=== PATIENT | female | born 1955 | race African-American/Black ===

== ENCOUNTER → 2016-11-28 | Outpatient (CLI) | payer OTHER ==
[~2016-11-28] MED LIST: ACET-1256 PO; B-COTAB18 PO; BIOT1CAP4 PO; BRIN3SUS OPB; CALC600T9 PO; CALCTAB7 PO; GABA-113 PO; GABA600T PO; IBUP-1050 PO; KETO0.5S22 OPB; MAGN250T9 PO; MELA3TAB PO; MISCCAP80 PO; NRN600 PO; NTRGSL/4 UT; OXYC1TAB3 PO; PRED1SUS3 OPR; TRAM-10 PO; TRAV0.00 OPB; VERA120T2 PO; [UNRECOGNIZED DRUG - OTHER] PO
--- NOTE | 2016-11-28 16:35 | DIAGNOSTIC IMAGING REPORT ---
CT SCAN OF THE CHEST WITHOUT IV CONTRAST CLINICAL HISTORY: Pulmonary nodule follow-up. COMPARISON STUDY: Chest CT scans dated 04/04/2016 and 01/30/2012. TECHNIQUE: CT scan of the thorax was performed from the thoracic inlet to the upper abdomen. Images are reviewed in the axial, sagittal, and coronal planes. IV contrast was not administered for this examination. CT DOSE: 675.37 mGy.cm FINDINGS: Thyroid: Imaged portions of the thyroid gland are mildly enlarged and heterogeneous. A coarse calcification is noted in the right lobe. Thoracic aorta: There is mild atherosclerotic calcification of the thoracic aorta, which is normal in caliber and demonstrates standard 3-vessel arch anatomy. Heart: The heart is normal in size and there is a small pericardial effusion. There are scattered coronary artery calcifications. The pulmonary trunk is normal in caliber. Lungs and pleural spaces: There is no airspace consolidation or pleural effusion. There is an 9 mm right middle lobe pulmonary nodule seen on axial image #126. This is unchanged from 04/04/2016 and has only minimally increased in size from 01/30/2012. Additional 2 to 3 mm nodules at the left lung base unchanged and of low suspicion. Tiny calcified granulomas are similar to the left lung base. The trachea and central airways are clear. Mediastinum: There is no mediastinal lymphadenopathy. Kellee: Not well assessed without IV contrast. Axillae: There is no axillary lymphadenopathy. Upper abdomen: Partially visualized upper abdominal viscera is within normal limits. Skeletal structures: The skeletal structures are osteopenic. No lytic or blastic bony lesions are seen. IMPRESSION: 1. No significant change in the appearance of a slow-growing 9 mm right middle lobe pulmonary nodule as compared to 04/04/2016. This nodule has slowly increased in size from 2011 when it measured up to 6 mm. A slow-growing neoplasm such as carcinoid tumor is suspected. Surgical consultation is advised. 2. No additional concerning nodules are identified. 3. There is no airspace consolidation, pleural effusion, or thoracic lymphadenopathy. Electronically signed by: Alfonso Iyer M.D. 11/28/2016 4:34 PM Dictated Date/Time: 11/28/2016 4:27 PM
== END | disposition home or self-care (01) ==
LOC: C.CTS 16:09
PROVIDERS: ATTEND Internal Medicine Pulmonary Disease
DX: R91.1 Solitary pulmonary nodule (principal)

== ENCOUNTER → 2016-12-13 | Outpatient (CLI) | payer OTHER ==
--- NOTE | 2016-12-13 16:32 | DIAGNOSTIC IMAGING REPORT ---
MRI OF THE LEFT ANKLE WITHOUT IV CONTRAST CLINICAL HISTORY: Left heel pain. COMPARISON STUDY: Radiograph of left heel dated 11/09/2016 TECHNIQUE: MRI of the left ankle is performed utilizing various T1 and T2-weighted sequences in the axial, sagittal, and coronal planes. IV contrast was not administered for this examination. FINDINGS: Normal marrow signal intensity is preserved throughout the visualized bony structures. There is no MRI evidence of fracture or osteonecrosis. No osteochondral defect is identified in the talar dome. There is trace ankle joint effusion. Normal fat is maintained within the sinus tarsi. There are dorsal and plantar calcaneal enthesophytes. The plantar fascia is normal as visualized. The Achilles tendon is normal in morphology and signal intensity. There is trace fluid within the retrocalcaneal bursa as well as trace fluid around the distal Achilles tendon. The overall appearance suggests mild Achilles paratenonitis. There is no significant edema Kager's fat pad. The tibialis posterior tendon is intact. There is fluid seen around the tendon sheath suggesting tendinitis. Mild subcutaneous soft tissue edema is present overlying the tibialis posterior tendon. The anterior, peroneal, and remaining posterior tendons appear intact. There is irregularity of the anterior talofibular ligament suggesting age indeterminant and likely chronic injury. The deltoid and spring ligaments are intact as visualized. The regional musculature is normal in bulk and signal intensity. IMPRESSION: 1. No bony abnormality is seen in left ankle. 2. The Achilles tendon is normal in morphology and signal intensity. Findings suggest mild Achilles paratenonitis, and there is trace fluid within the retrocalcaneal bursa. Clinical correlation will be required. 3. Findings suggest tendinitis of the tibialis posterior tendon with mild overlying soft tissue edema. Again, clinical correlation will be required. The fibers of the tendon are intact. 4. Age indeterminant and likely chronic tearing is seen involving the anterior talofibular ligament. Electronically signed by: Alfonso Iyer M.D. 12/13/2016 4:31 PM Dictated Date/Time: 12/13/2016 4:09 PM
== END | disposition home or self-care (01) ==
LOC: C.MRI 14:57
PROVIDERS: ATTEND Physical Medicine & Rehabilitation Sports Medicine
DX: M79.672 Pain in left foot (principal); M76.61 Achilles tendinitis, right leg

== ENCOUNTER → 2017-05-08 | Outpatient (CLI) | payer OTHER ==
--- NOTE | 2017-05-08 17:41 | DIAGNOSTIC IMAGING REPORT ---
C-SPINE ROUTINE 4 OR 5 VIEWS CLINICAL HISTORY: M54.2 neck pain COMPARISON STUDY: 01/30/2013 FINDINGS: There are postsurgical changes of anterior discectomy, interbody bone plug and anterior fusion at the C4-5 level. There are multilevel degenerative changes, most pronounced C5-6 level where there is moderate disc space narrowing. There are no acute fractures or subluxations. There is uncovertebral joint spurring. There is minor multilevel foraminal narrowing. IMPRESSION: Postsurgical changes at the C4-5 level. Degenerative changes most pronounced C5-6 level. No acute fractures or traumatic subluxations identified. Electronically signed by: Abel Pond M.D. 05/08/2017 5:40 PM Dictated Date/Time: 05/08/2017 5:38 PM
== END | disposition home or self-care (01) ==
LOC: C.RAD 16:54
PROVIDERS: ATTEND Family Medicine
DX: M54.2 Cervicalgia (principal); M54.10 Radiculopathy, site unspecified

== ENCOUNTER → 2017-05-19 | Outpatient (CLI) | payer OTHER ==
--- NOTE | 2017-05-19 11:09 | DIAGNOSTIC IMAGING REPORT ---
MRI OF THE CERVICAL SPINE WITHOUT CONTRAST CLINICAL HISTORY: IMBALANCED NECK PAIN; RADICULOPATHY COMPARISON: MRI of the cervical spine September 14, 2012 and cervical spine radiographs May 08, 2017. TECHNIQUE: Utilizing a 1.5 Elsy magnet and dedicated coil, multiplanar, multiecho imaging of the cervical spine was performed without IV contrast. FINDINGS: This exam is mildly compromised by motion artifact. There are findings consistent with a C4-C5 anterior discectomy and fusion. Postoperative appearance is unchanged since MRI of September 14, 2012. There is no suspicious marrow replacement. There is no evidence for fracture. Visualized portions of the posterior fossa are unremarkable. There is mild increased T2 signal with volume loss within the cord at the C4-C5 level which is similar to exam of September 14, 2012. C2-C3: The central canal and neural foramen are patent. C3-C4: There is mild posterior disc osteophyte complex that results in mild narrowing of the central canal. This is unchanged since prior exam. Neural foramen are patent. C4-C5: There is no residual central canal stenosis. The neural foramen are grossly patent. C5-C6: Posterior disc osteophyte complex results in mild to moderate narrowing of the central canal. This is similar to prior MRI. There is moderate left and mild to moderate right neural foraminal stenosis. C6-C7: Central canal and neural foramen are patent. C7-T1: Central canal and neural foramen are patent. IMPRESSION: 1. Status post C4-C5 anterior discectomy and fusion. 2. Mild increased T2 signal within the cord at the C4-C5 level with volume loss. This is similar to MRI of September 14, 2012 and suggestive of myelomalacia. 3. No change in appearance of the cervical spine since exam of September 14, 2012. 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 Electronically signed by: Ruben Young M.D. 05/19/2017 11:07 AM Dictated Date/Time: 05/19/2017 11:01 AM
== END | disposition home or self-care (01) ==
LOC: C.MRI 09:35
PROVIDERS: ATTEND Family Medicine
DX: M54.10 Radiculopathy, site unspecified (principal); M54.2 Cervicalgia; R26.89 Other abnormalities of gait and mobility

== ENCOUNTER 2017-05-27 20:14 | Emergency (ER) | payer OTHER ==
[~2017-05-27] VITALS: Ht 157.5 cm; Wt 100.5 kg
[2017-05-27 20:12] VITALS: TEMP 36.8; Ht 157.5 cm; Wt 100.5 kg
[~2017-05-27 20:14] MED LIST changes: -BIOT1CAP4 PO; -CALCTAB7 PO; -GABA600T PO; -IBUP-1050 PO; -NRN600 PO; -OXYC1TAB3 PO
[2017-05-27] MEDS ORDERED: HYDROmorphone INJ 1 MG/ML SYR IV STA ×2 (20:26→21:40)
[2017-05-27] MEDS ORDERED: ONDANSETRON INJ 2 MG/ML 2 ML VIAL IV STA (20:26)
[2017-05-27 21:08] LABS: BASO % 0.1 %; BASO ABS # 0.01 K/uL (0-0.2); COMPLETE YES; EOS % 0.5 %; HEMATOCRIT 43.5 % (37-47); IG% 0.2 %; LYMPH % 37.1 %; LYMPH ABS # 3.24 K/uL (1.2-3.4); MEAN CELL VOLUME 87.5 fL (80-100); MEAN CORPUSCULAR HGB CONC 33.1 g/dl (32-36); MEAN PLATELET VOLUME 11.3 fL (7.4-10.4); MONO % 5.6 %; NEUT % 56.5 %; PLATELET COUNT 365 K/uL (130-400); RED BLOOD COUNT 4.97 M/uL (4.2-5.4); WHITE BLOOD COUNT 8.74 K/uL (4.8-10.8)
[2017-05-27] MEDS ORDERED: BIOT1CAP4 PO (21:11)
[2017-05-27] MEDS ORDERED: CALCTAB7 PO ×2 (21:11)
[2017-05-27] MEDS ORDERED: IBUP-1050 PO (21:11)
[2017-05-27] MEDS ORDERED: NRN600 PO (21:11)
[2017-05-27] MEDS ORDERED: GABA600T PO (21:13)
[2017-05-27 21:31] LABS: BUN/CREATININE RATIO 9.3 (10-20); CALCIUM 9.7 mg/dl (8.5-10.1); CREATININE 1.2 mg/dl (0.60-1.20); POTASSIUM 3.4 mmol/L (3.5-5.1)
--- NOTE | 2017-05-27 21:45 | DIAGNOSTIC IMAGING REPORT ---
L-SPINE MIN 4 VIEWS ROUTINE CLINICAL HISTORY: Hip and back pain. Trauma. COMPARISON STUDY: No previous studies for comparison. FINDINGS: There are 5 lumbar type vertebral bodies present. No fractures or dislocations are visualized. There are degenerative changes most pronounced the L5-S1 level. There is a nonspecific 5 mm somewhat triangular calcification within the left pelvic basin. This remains unchanged from June 2015. A prior CT scan revealed this to be extra ureteral. IMPRESSION: 1. No fractures or dislocations identified 2. Degenerative changes most pronounced at the L5-S1 level Electronically signed by: Abel Pond M.D. 05/27/2017 9:44 PM Dictated Date/Time: 05/27/2017 9:41 PM
--- NOTE | 2017-05-27 21:46 | DIAGNOSTIC IMAGING REPORT ---
AP PELVIS AND LEFT HIP 3 VIEWS CLINICAL HISTORY: Left hip pain COMPARISON STUDY: No previous studies for comparison. FINDINGS: No acute fractures or dislocations are visualized. The joint space appears well-preserved for age. There are insertional calcifications at the level of the greater trochanter. IMPRESSION: No fractures or dislocations identified. Electronically signed by: Abel Pond M.D. 05/27/2017 9:44 PM Dictated Date/Time: 05/27/2017 9:44 PM
[2017-05-27] MEDS ORDERED: OXYCODONE IR HOME PACK PO ONE (22:30)
[2017-05-27] MEDS ORDERED: OXYC1TAB3 PO (22:36)
[2017-05-27 22:57] VITALS: BP 164/97; PULSE 82; O2SAT 98
--- NOTE | 2017-05-28 00:13 | EMERGENCY ROOM VISIT NOTE ---
History Report prepared by Abran: Neel Tobias Under the Supervision of: Dr. José Benoit M.D. First contact with patient: 20:20 Chief Complaint: HIP PAIN Stated Complaint: hip pain History of Present Illness The patient is a 61 year old female who presents to the Emergency Room with complaints of constant left hip pain occurring prior to arrival which is going down her leg. The patient's states that the patient was dancing and "shaking her tail feathers", and she felt her left hip pop which felt like she broke her leg. She states that she did not fall and hit her head. The patient denies any back pain, fever, vomiting, chest pain, shortness of breath, abdominal pain, or loss of control of her bowel or bladder. The patient states that she cannot sit or put any weight on it. The states that the patient has a history of stenosis of the sacrum and a disc repair in her cervical spine. The patient states that she has hypertension which is controlled with gabapentin. She does not take any blood thinners. Source of History: patient, spouse/significant other Onset: prior to arrival Position: other (left hip) Timing: constant Modifying Factors (Worsening): movement Associated Symptoms: No fevers, No chest pain, No SOB, No vomiting, No abdominal pain, No back pain, No weakness, No numbness Note: Associated symptoms: Left leg pain Review of Systems See HPI for pertinent positives & negatives. A total of 10 systems reviewed and were otherwise negative. Past Medical & Surgical Medical Problems: (1) Bronchitis (2) History of orthopedic surgery (3) Hypertension (4) Pneumonia (5) Rheumatoid arthritis Family History FHx: cancer FHx: hypertension Social History Smoking Status: Former Smoker Alcohol Use: occasionally Drug Use: none Marital Status: Housing Status: lives with significant other Occupation Status: retired Current/Historical Medications Scheduled B-Complex Vitamins (Vitamin B Complex), 1 TAB PO QAM Biotin (Biotin), 1 CAP PO DAILY Calcium Carbonate-Vitamin D W/ (Caltrate 600 Plus), 1 TAB PO QAM Calcium Carbonate-Vitamin D W/ (Caltrate 600 Plus), 2 TAB PO QPM Gabapentin (Gabapentin), 600 MG PO QAM Gabapentin (Neurontin), 1,200 MG PO HS Ibuprofen (Advil), 400 MG PO Q6 Magnesium (Magnesium), 250 MG PO BID Probiotic Product (Probiotic), 1 TABLET PO QAM Scheduled PRN Acetaminophen (Tylenol), 1,000 MG PO BID PRN for Pain Oxycodone Ir (Roxicodone Ir), 5 MG PO Q4H PRN for Pain Allergies Coded Allergies: Penicillins (Verified Allergy, Intermediate, RASH, 07/19/15) Fluticasone (Verified Allergy, Unknown, ITCH, 07/19/15) Adhesives (Verified Adverse Reaction, Unknown, "SKIN SCARRING", 07/19/15) Physical Exam Vital Signs Date Time Temp Pulse Resp B/P (MAP) Pulse Ox O2 Delivery O2 Flow Rate FiO2 05/27/17 22:57 82 20 164/97 98 05/27/17 22:25 78 20 182/102 95 Room Air 05/27/17 20:12 36.8 81 20 153/82 97 Room Air Physical Exam Constitutional: Vital signs reviewed. Eyes: Pupils are equal round reactive to light. Conjunctiva are noninjected. ENT: Pharynx is clear without erythema or exudate. Mucous membranes are moist. Neck supple without meningeal signs. Respiratory: Clear to auscultation bilaterally. Breath sounds are equal bilaterally. Cardiovascular: Regular rate and rhythm. No rubs or gallops. GI: Soft, nondistended and nontender. Bowel sounds are present. Musculoskeletal: Tenderness to the left hip without erythema or warmth. No shortening of the leg. Normal distal pulses. No midline tenderness to the thoracic or lumbosacral spine. Integumentary: No cyanosis. Neurological: Chronic dysesthesia below the left knee which she says is unchanged since her knee replacement. She can flex and extend the knee and ankle. Normal sensation proximally. The patient is awake and alert. Psychiatric: Normal affect. Medical Decision & Procedures ER Provider Diagnostic Interpretation: X-ray results as stated below per interpretation by me and the radiologist: L-SPINE MIN 4 VIEWS ROUTINE CLINICAL HISTORY: Hip and back pain. Trauma. COMPARISON STUDY: No previous studies for comparison. FINDINGS: There are 5 lumbar type vertebral bodies present. No fractures or dislocations are visualized. There are degenerative changes most pronounced the L5-S1 level. There is a nonspecific 5 mm somewhat triangular calcification within the left pelvic basin. This remains unchanged from June 2015. A prior CT scan revealed this to be extra ureteral. IMPRESSION: 1. No fractures or dislocations identified 2. Degenerative changes most pronounced at the L5-S1 level Electronically signed by: Abel Pond M.D. 05/27/2017 9:44 PM Dictated Date/Time: 05/27/2017 9:41 PM AP PELVIS AND LEFT HIP 3 VIEWS CLINICAL HISTORY: Left hip pain COMPARISON STUDY: No previous studies for comparison. FINDINGS: No acute fractures or dislocations are visualized. The joint space appears well-preserved for age. There are insertional calcifications at the level of the greater trochanter. IMPRESSION: No fractures or dislocations identified. Electronically signed by: Abel Pond M.D. 05/27/2017 9:44 PM Dictated Date/Time: 05/27/2017 9:44 PM Laboratory Results 05/27/17 20:50 Red Blood Count 4.97, Mean Corpuscular Volume 87.5, Mean Corpuscular Hemoglobin 29.0, Mean Corpuscular Hemoglobin Concent 33.1, Mean Platelet Volume 11.3, Neutrophils (%) (Auto) 56.5, Lymphocytes (%) (Auto) 37.1, Monocytes (%) (Auto) 5.6, Eosinophils (%) (Auto) 0.5, Basophils (%) (Auto) 0.1, Neutrophils # (Auto) 4.94, Lymphocytes # (Auto) 3.24, Monocytes # (Auto) 0.49, Eosinophils # (Auto) 0.04, Basophils # (Auto) 0.01 05/27/17 20:50 Test 05/27/17 20:50 White Blood Count 8.74 K/uL (4.8-10.8) Red Blood Count 4.97 M/uL (4.2-5.4) Hemoglobin 14.4 g/dL (12.0-16.0) Hematocrit 43.5 % (37-47) Mean Corpuscular Volume 87.5 fL (80-100) Mean Corpuscular Hemoglobin 29.0 pg (25-34) Mean Corpuscular Hemoglobin Concent 33.1 g/dl (32-36) Platelet Count 365 K/uL (130-400) Mean Platelet Volume 11.3 fL (7.4-10.4) Neutrophils (%) (Auto) 56.5 % Lymphocytes (%) (Auto) 37.1 % Monocytes (%) (Auto) 5.6 % Eosinophils (%) (Auto) 0.5 % Basophils (%) (Auto) 0.1 % Neutrophils # (Auto) 4.94 K/uL (1.4-6.5) Lymphocytes # (Auto) 3.24 K/uL (1.2-3.4) Monocytes # (Auto) 0.49 K/uL (0.11-0.59) Eosinophils # (Auto) 0.04 K/uL (0-0.5) Basophils # (Auto) 0.01 K/uL (0-0.2) RDW Standard Deviation 44.3 fL (36.4-46.3) RDW Coefficient of Variation 13.8 % (11.5-14.5) Immature Granulocyte % (Auto) 0.2 % Immature Granulocyte # (Auto) 0.02 K/uL (0.00-0.02) Anion Gap 7.0 mmol/L (3-11) Est Creatinine Clear Calc Drug Dose 53.2 ml/min Estimated GFR () 55.7 Estimated GFR (Non- 48.1 BUN/Creatinine Ratio 9.3 (10-20) Calcium Level 9.7 mg/dl (8.5-10.1) Laboratory results as reviewed by me. Medications Administered Medications (Trade) Dose Ordered Sig/Jef Route Start Time Stop Time Status Last Admin Dose Admin Hydromorphone HCl (Dilaudid Inj) 0.5 mg NOW STAT IV 05/27/17 20:26 05/27/17 20:28 DC 05/27/17 20:55 0.5 MG Ondansetron HCl (Zofran Inj) 4 mg NOW STAT IV 05/27/17 20:26 05/27/17 20:28 DC 05/27/17 20:55 4 MG Hydromorphone HCl (Dilaudid Inj) 0.5 mg NOW STAT IV 05/27/17 21:40 05/27/17 21:41 DC 05/27/17 21:50 0.5 MG Oxycodone HCl (Roxicodone Immediate Rel 5MG Home Pack) 1 homepack UD ONCE PO 05/27/17 22:30 05/27/17 22:31 DC 05/27/17 22:45 1 HOMEPACK ED Course 2019: The patient was evaluated in room B2. A complete history and physical exam was performed. 2025: Zofran Inj 4mg IV, Dilaudid Inj 0.5mg IV 2126: I discussed the patients case with Dr. Pond, Radiology, and he states that it could be an avulsion fracture. 0: Dilaudid Inj 0.5mg IV 215: I reviewed the test results with her and her . The patient still has pain and is getting a second dose of medications. 3: I reevaluated the patient, and she and her are worried about controlling her pain at home and her ability to care for herself. They are requesting hospitalization. The sample case porter is reviewing her case. 2218: The sample case porter talked to the and the patient, and they are willing to try and ambulate. If she can ambulate with a walker, they are willing to go home. 2227: The patient is able to ambulate with a walker, and she feels safe to go home. The sample case porter will arrange for a follow up with Dr. Kaplan 2230: Roxicodone Immediate Rel 5mg Home Pack PO Medical Decision This is a 61-year-old female presents with left hip pain occurring spontaneously while dancing. Differential diagnosis includes hip dislocation, hip fracture, intervertebral disc disease with radiculopathy, spinal stenosis, muscle strain, tendon rupture. I did perform a limited focused review of portions of the patient's old chart on the electronic medical record. The patient has had no recent pertinent visits to this hospital. Blood Pressure Screening: Patient was found to have an elevated blood pressure and was referred to their primary doctor for recheck and further treatment. Medication Reconciliation: I attest that I have personally reviewed the patient' s current medication list. I did evaluate the patient as noted above. The patient is presenting with left- sided hip pain. She is tender over that hip over the greater trochanter. It occurred while she was dancing. She has pain with extension of the hip but not flexion of the hip. IV access was established. I did treat her with Dilaudid 0.5 mg IV and Zofran IV. I did order and personally review the patient's x- rays as described above. I do believe she has a avulsion fracture to the greater trochanter. This suggests a possible tear of the gluteal muscles. This would be consistent with her clinical exam. I feel radicular pain is less likely given the tenderness over the hip itself. There is no erythema or increased warmth to suggest an infection. The pain was sudden in onset while she was dancing. I did order and review the patient's blood work as noted in the electronic medical record. I did discuss the test results with the patient and her . I did treat her with additional Dilaudid 0.5 mg IV. We did have a long discussion regarding treatment options. The sample case porter also became involved. After further discussion the patient felt better and we attempted an ambulatory trial with a walker. She was successful and felt well enough to go home. The sample case porter will make an appointment for her to see [facility] as soon as possible. The patient was given OxyIR as a home pack and a prescription was sent to her pharmacy. She was given precautions regarding this medication. She does have a walker and crutches at home. They will return at any time should she have worsening symptoms or is unable to care for herself or control her pain at home. She was discharged in good condition. [place] Drug Monitoring Program Search Results: patient reviewed within database, no issues identified Impression Primary Impression: Avulsion fracture of left hip Additional Impressions: Muscle tear Degenerative disc disease, lumbar Scribe Attestation The scribe's documentation has been prepared under my direct and personally reviewed by me in its entirety. I confirm that the note above accurately reflects all work, treatment, procedures, and medical decision making performed by me. Departure Information Dispostion Home / Self-Care Prescriptions Oxycodone Ir (Roxicodone Ir) 5 Mg Tab 5 MG PO Q4H Y for Pain, #25 TAB Prov: José Benoit M.D. 05/27/17 Referrals Kiko Berger M.D. (PCP) Forms HOME CARE DOCUMENTATION FORM, IMPORTANT VISIT INFORMATION, WORK / SCHOOL INSTRUCTIONS Patient Instructions My [facility] Additional Instructions You have been examined and treated today on an emergency basis only. This is not a substitute for, or an effort to provide, complete comprehensive medical care. It is impossible to recognize and treat all injuries or illnesses in a single emergency department visit. It is therefore important that you follow up closely with Dr. Kaplan. The sample case porter will help in arranging an expedient appointment. Return for worsening symptoms or if you develop loss of control of your bowel or bladder, numbness or weakness to your legs, numbness to your private area, difficulty urinating, or any other concerning symptoms. Oxycodone is a narcotic pain medication and can be very addictive if used too much. It can also cause constipation so you may consider using stool softeners. Problem Qualifiers Primary Impression: Avulsion fracture of left hip Encounter type: initial encounter Fracture type: closed Qualified Codes: S72.002A - Fracture of unspecified part of neck of left femur, initial encounter for closed fracture
[2017-07-17] MEDS ORDERED: OXYC1TAB3 PO (11:44)
== END 2017-05-27 22:58 | disposition home or self-care (01) ==
LOC: EDBD 20:14 → C.EDB 20:14
DX: S72.002A Fracture of unspecified part of neck of left femur, initial encounter for closed fracture (principal); M25.552 Pain in left hip; Y93.41 Activity, dancing; Y92.89 Other specified places as the place of occurrence of the external cause; I10 Essential (primary) hypertension; M47.27 Other spondylosis with radiculopathy, lumbosacral region; Z87.891 Personal history of nicotine dependence

== ENCOUNTER → 2017-06-02 | Outpatient (CLI) | payer OTHER ==
[~2017-06-02] MED LIST changes: +BIOT1CAP4 PO; -BRIN3SUS OPB; -CALC600T9 PO; +CALCTAB7 PO; -GABA-113 PO; +GABA600T PO; +IBUP-1050 PO; -KETO0.5S22 OPB; -MELA3TAB PO; +NRN600 PO; -NTRGSL/4 UT; +OXYC1TAB3 PO; -PRED1SUS3 OPR; -TRAM-10 PO; -TRAV0.00 OPB; -VERA120T2 PO; -[UNRECOGNIZED DRUG - OTHER] PO
--- NOTE | 2017-06-02 15:03 | DIAGNOSTIC IMAGING REPORT ---
LEFT LOWER EXT JOINT WITHOUT CLINICAL HISTORY: 61 years-old Female presenting with LEFT HIP PAIN. TECHNIQUE: Multisequence, multiplanar MR imaging of the left hip was performed without the use of intravenous contrast. COMPARISON: CT of the pelvis from 2015. FINDINGS: Image quality is limited by patient body habitus. Hips: Hip joints congruent. No significant joint effusion. No edema in the soft tissues surrounding the hips. The left labrum is intact. Other musculoskeletal: T2 hyperintensity in the left gluteus medius muscle along the lateral aspect immediately subjacent to the left iliotibial band. This extends to its greater trochanteric insertion site. Normal bone marrow signal intensity. Sacroiliac joints and lower lumbar spine normal. Normal muscle bulk. Vasculature: Two simple appearing T2 hyperintense lesions along the right external iliac region may represent lymphoceles, seromas, or other benign entity. Normal noncontrast appearance of the vasculature. Lymph nodes: No lymphadenopathy. Pelvic organs: Patient is status post hysterectomy. No adnexal masses. Bladder: Normal. IMPRESSION: 1. Evidence of edema within the left gluteus medias muscle extending to its greater trochanteric insertion site. This is consistent with a muscle strain or partial tear. 2. No intrinsic abnormality of the left hip joint. Electronically signed by: Bryon Anaya M.D. 06/02/2017 3:02 PM Dictated Date/Time: 06/02/2017 2:50 PM
== END | disposition home or self-care (01) ==
LOC: C.MRI 13:33
PROVIDERS: ATTEND Physical Medicine & Rehabilitation Sports Medicine
DX: M25.552 Pain in left hip (principal); R60.9 Edema, unspecified

== ENCOUNTER → 2017-07-14 | Outpatient (CLI) | payer OTHER ==
--- NOTE | 2017-07-14 16:13 | DIAGNOSTIC IMAGING REPORT ---
MRI OF THE LUMBAR SPINE WITHOUT CONTRAST CLINICAL HISTORY: Low back pain radiating into right buttock. COMPARISON STUDY: Lumbar spine radiographs May 27, 2017. TECHNIQUE: Utilizing a 1.5 Elsy magnet and dedicated coil, multiplanar, multiecho imaging of the lumbar spine was performed without IV contrast. FINDINGS: For purposes of numbering on this exam, the L5-S1 disc space is assigned to axial image 23 of 25. Alignment of lumbar spine is anatomic. Vertebral body heights are maintained. There is no suspicious marrow replacement. There is disc space narrowing at L5-S1. There is no intracanalicular mass or fluid collection. Conus terminates at the mid L2 level. Paravertebral soft tissues are unremarkable. L1-2: The central canal and neural foramen are patent. L2-3: The central canal and neural foramen are patent. L3-4: There is minimal disc bulge. The central canal and neural foramen are patent. L4-5: There is mild disc bulge with annular tear. There is mild facet arthrosis. Central canal is patent. There is mild narrowing of the lateral recesses and neural foramen. L5-S1: There is minimal disc bulge with a tiny central disc protrusion. Central canal and lateral recesses are patent. There is mild narrowing of both neural foramen. IMPRESSION: 1. Mild multilevel degenerative disc disease and facet arthrosis. Small disc bulges at L4-L5 and L5-S1 without significant central canal stenosis. 2. Mild multilevel neural foraminal stenosis. Electronically signed by: Ruben Young M.D. 07/14/2017 4:11 PM Dictated Date/Time: 07/14/2017 4:06 PM
== END | disposition home or self-care (01) ==
LOC: C.MRIBC 14:33
PROVIDERS: ATTEND Physical Medicine & Rehabilitation
DX: M54.16 Radiculopathy, lumbar region (principal); M99.83 Other biomechanical lesions of lumbar region

== ENCOUNTER → 2017-07-18 | Outpatient (CLI) | payer OTHER ==
--- NOTE | 2017-07-18 16:08 | MAMMOGRAPHY REPORT ---
BILATERAL DIGITAL SCREENING MAMMOGRAM WITH CAD: 07/18/2017 CLINICAL HISTORY: Routine screening. Patient has no complaints. TECHNIQUE: Bilateral CC, MLO and right XCCL views were obtained. Current study was also evaluated wi th a Computer Aided Detection (CAD) system. COMPARISON: Comparison is made to exams dated: 07/15/2016 mammogram, 07/14/2015 mammogram, 06/23/2014 ma mmogram, 05/21/2013 mammogram, and 05/18/2012 mammogram - [facility]. BREAST COMPOSITION: The tissue of both breasts is heterogeneously dense, which may obscure small mas ses. FINDINGS: There is stable benign duct ectasia in the anterior aspect of each breast. No new suspicio us mass, architectural distortion or cluster of microcalcifications is seen. IMPRESSION: ACR BI-RADS CATEGORY 1: NEGATIVE There is no mammographic evidence of malignancy. A 1 year screening mammogram is recommended. The pa tient will receive written notification of the results. Approximately 10% of breast cancers are not detected with mammography. A negative mammographic report should not delay biopsy if a clinically suggestive mass is present. Jennifer Garza M.D. ay/:07/18/2017 14:59:40 [employer] Supervisor: Scarlett ARTHUR(R)(M), [facility] letter sent: Normal 1/2 BI-RADS Code: ACR BI-RADS Category 1: Negative
== END | disposition home or self-care (01) ==
LOC: C.MAMM 13:22
PROVIDERS: ATTEND Internal Medicine
DX: Z12.31 Encounter for screening mammogram for malignant neoplasm of breast (principal)

== ENCOUNTER → 2017-08-11 | Outpatient (CLI) | payer OTHER ==
--- NOTE | 2017-08-11 17:06 | DIAGNOSTIC IMAGING REPORT ---
BRAIN WITHOUT CONTRAST HISTORY: Mental status change COGNITIVE DYSFUNCTION TECHNIQUE: Multiplanar multisequence MRI of the brain was performed without the use of contrast. COMPARISON STUDY: None. FINDINGS: There are no areas of restricted diffusion to suggest acute infarction. The midline structures are intact. The paranasal sinuses are clear. The mastoid air cells are clear. The ventricles and sulci are within normal limits for age. There is no mass, hematoma, midline shift. The major vascular flow-voids at the skull base are well maintained. Several foci of increased signal consistent with chronic small vessel change of aging. IMPRESSION: No acute intracranial abnormality. Age-related chronic small vessel change versus the less likely possibility of a demyelinating disorder The above report was generated using voice recognition software. It may contain grammatical, syntax or spelling errors. Electronically signed by: Jorge L Morrison M.D. 08/11/2017 5:05 PM Dictated Date/Time: 08/11/2017 5:02 PM
== END | disposition home or self-care (01) ==
PROVIDERS: ATTEND Family Medicine
DX: F09 Unspecified mental disorder due to known physiological condition (principal)

== ENCOUNTER → 2017-08-18 | Outpatient (CLI) | payer OTHER ==
--- NOTE | 2017-08-18 13:28 | DIAGNOSTIC IMAGING REPORT ---
PELVIC ULTRASOUND, TRANSABDOMINAL AND TRANSVAGINAL HISTORY: R OVARY CYST COMPARISON: Abdomen and pelvis CT 07/19/2015. FINDINGS: Uterus: The uterus is not identified. By report, the patient has had a partial hysterectomy. Right ovary: Possible visualization of the right ovary which measures 2.4 x 2.2 x 1.7 cm. This is suboptimal evaluated due to the overlapping bowel gas. There is a 1.7 cm cyst within the right adnexa. Left ovary: Obscured by overlying bowel gas. Miscellaneous:No pelvic free fluid. IMPRESSION: 1. Status post partial hysterectomy. The uterus was not clearly identified. 2. The left are secured by overlying bowel gas. 3. A 1.7 cm right adnexal cyst. The right ovary was likely visualized and is normal in size. Electronically signed by: Colin Wade M.D. 08/18/2017 1:27 PM Dictated Date/Time: 08/18/2017 1:24 PM
== END | disposition home or self-care (01) ==
LOC: C.ULTRBC 12:16
PROVIDERS: ATTEND Family Medicine
DX: N83.201 Unspecified ovarian cyst, right side (principal); Z90.711 Acquired absence of uterus with remaining cervical stump

== ENCOUNTER → 2017-08-24 | Outpatient (CLI) | payer OTHER ==
--- NOTE | 2017-08-24 14:00 | DIAGNOSTIC IMAGING REPORT ---
CT OF THE CHEST WITHOUT IV CONTRAST CLINICAL HISTORY: SOLITARY PULMONARY NODULE. COMPARISON STUDY: Chest CTs January 30, 2012 and November 28, 2016. CT DOSE: 637.60 mGycm TECHNIQUE: Axial images of the chest were obtained without IV contrast. Images were reviewed in the axial, sagittal, and coronal planes. IV contrast was not administered for this examination. A dose lowering technique was utilized adhering to the principles of ALARA. FINDINGS: No enlarged axillary, mediastinal or hilar lymph nodes are present. A trace pericardial effusion is unchanged. The size of the heart is normal. There is central airways are patent. There is no consolidation to suggest pneumonia. A 9 mm right middle lobe nodule shown on image 145 of [address] of November 28, 2016. This has mildly increased in size when compared to exam of January 30, 2012. Linear and ground glass opacities suggest atelectasis. Bony thorax and upper abdomen are unremarkable. IMPRESSION: 9 mm right middle lobe nodule which is unchanged since CT of November 28, 2016 but mildly increased in size since initial chest CT of January 30, 2012. This nodule remains indeterminate. Electronically signed by: Ruben Young M.D. 08/24/2017 1:58 PM Dictated Date/Time: 08/24/2017 1:49 PM
== END | disposition home or self-care (01) ==
LOC: C.CTS 13:27
PROVIDERS: ATTEND Internal Medicine Pulmonary Disease
DX: R91.1 Solitary pulmonary nodule (principal)

== ENCOUNTER 2017-12-31 19:26 | Emergency (ER) | payer OTHER ==
[~2017-12-31 19:26] MED LIST changes: -BIOT1CAP4 PO; -CALCTAB7 PO; -GABA600T PO; -IBUP-1050 PO
[2017-12-31 19:39] VITALS: Ht 158.8 cm
[2017-12-31] MEDS ORDERED: ONDANSETRON INJ 2 MG/ML 2 ML VIAL IV STA ×2 (21:08→22:33)
[2017-12-31] MEDS ORDERED: CALCTAB7 PO ×2 (21:11)
[2017-12-31] MEDS ORDERED: IBUP-1050 PO (21:11)
[2017-12-31] MEDS ORDERED: BIOT1CAP4 PO (21:11)
[2017-12-31] MEDS ORDERED: GABA600T PO (21:13)
--- NOTE | 2017-12-31 21:17 | EMERGENCY ROOM VISIT NOTE ---
History Report prepared by Abran: Julienne Galeano Under the Supervision of: Dr. Davina Parra D.O. First contact with patient: 20:37 Chief Complaint: CHEST PAIN Stated Complaint: CHEST PAIN-CALLED IN Nursing Triage Summary: Patient reports chest pain that began earlier today and got worse tonight. Notes some SOB. Pain is intermittent. Patient notes that she has also been having hot/cold spells. History of Present Illness The patient is a 62 year old female who presents to the Emergency Room with complaints of intermittent chest pain since noon today. She reports the pain comes and goes and it feeling like someone is squeezing the left side of her chest. The pain does radiate to her left shoulder, though does not radiate to her arms. She notes shortness of breath with walking and sweating this morning. She reports neck pain that began three days ago. She also notes back pain and nausea that began today. She states the nausea may be related to the chest pain , but she is unsure. She reports pain in her head, though it does not feel like a normal headache and she has associated intermittent blurry vision that began today as well but was very brief and resolved. She notes feeling hot, though does not feel this is similar to menopause. Per , they looked up the heart association website and were concerned for some of her symptoms and decided to come into the ED for evaluation. She also reports feelings of anxiety, though denies any history of anxiety. She denies any vomiting, diarrhea , or urinary symptoms. She denies any fevers or body aches, though reports a cold last week. She reports similar chest pain in the past and was seen in [place]. She has been given NTG for the chest pain in the past. She had a serious knee injury in 2012, which caused her to have a chemical stress test. She believes the pain is unrelated to indigestion. Source of History: patient, spouse/significant other Onset: since noon today Position: chest Quality: other (feels like someone is squeezing her chest) Timing: intermittent Associated Symptoms: + neck pain, + SOB, + nausea, No fevers, No vomiting, No diarrhea, No urinary symptoms Note: She reports left shoulder pain and head pain. She notes blurry vision, feeling hot, and anxiety. She notes sweating. She denies any body aches. Review of Systems See HPI for pertinent positives & negatives. A total of 10 systems reviewed and were otherwise negative. Past Medical & Surgical Medical Problems: (1) Abdominal pain (2) ACL (anterior cruciate ligament) tear (3) Avulsion fracture of left hip (4) Bronchitis (5) Contusion of left knee (6) Degenerative disc disease, lumbar (7) Dehydration (8) Esophageal spasm (9) Fall (10) History of orthopedic surgery (11) Hypertension (12) Intractable nausea and vomiting (13) Knee instability (14) Muscle tear (15) Pneumonia (16) Rheumatoid arthritis (17) Small bowel obstruction (18) Tear of LCL (lateral collateral ligament) of knee (19) Vertigo Surgical Problems: (1) History of knee surgery (2) Hx of appendectomy Family History FHx: cancer FHx: hypertension Social History Smoking Status: Never Smoker Alcohol Use: occasionally (1/week) Drug Use: none Marital Status: Housing Status: lives with significant other Occupation Status: retired Current/Historical Medications Scheduled B-Complex Vitamins (Vitamin B Complex), 1 TAB PO QAM Biotin (Biotin), 2,500 MCG PO DAILY Calcium Carbonate-Vitamin D W/ (Caltrate 600 Plus), 1 TAB PO QAM Calcium Carbonate-Vitamin D W/ (Caltrate 600 Plus), 2 TABS PO QPM Gabapentin (Neurontin), 1,200 MG PO HS Magnesium (Magnesium), 250 MG PO BID Probiotic Product (Probiotic), 1 TABLET PO QAM Scheduled PRN Acetaminophen (Tylenol), 1,000 MG PO BID PRN for Pain Ibuprofen (Advil), 400 MG PO Q6H PRN for Pain Oxycodone HCl (Oxycodone HCl), 5 MG PO UD PRN for Pain Allergies Coded Allergies: Fluticasone (Verified Allergy, Unknown, ITCH, 07/17/17) Adhesives (Verified Adverse Reaction, Unknown, "SKIN SCARRING", 07/17/17) Physical Exam Vital Signs Date Time Temp Pulse Resp B/P (MAP) Pulse Ox O2 Delivery O2 Flow Rate FiO2 01/01/18 02:25 71 20 137/84 98 01/01/18 00:12 63 01/01/18 00:03 36.6 62 18 161/78 97 Room Air 12/31/17 20:38 62 12/31/17 19:48 99 Room Air 12/31/17 19:39 36.7 62 20 178/100 99 Room Air Physical Exam GENERAL: alert, anxious-appearing, well nourished, no distress, non-toxic. Obese HEAD: point tenderness at left aspect of nuchal ridge EYE EXAM: normal conjunctiva, PERRL and EOM's grossly intact OROPHARYNX: no exudate, no erythema, lips, buccal mucosa, and tongue normal and mucous membranes are moist NECK: supple, no nuchal rigidity, no adenopathy, non-tender, no reproducible neck pain CHEST: reproducible chest pain along left sternal border. LUNGS: Clear to auscultation. Normal chest wall mechanics, no w/r/r HEART: no murmurs, S1 normal and S2 normal ABDOMEN: abdomen soft, non-tender, normo-active bowel sounds, no masses, no rebound or guarding. BACK: Back is symmetrical on inspection and there is no deformity, no midline tenderness, no CVA tenderness. SKIN: no rashes and no bruising UPPER EXTREMITIES: upper extremities are grossly normal. Full range of motion, normal pulses. LOWER EXTREMITIES: No pitting edema. Full range of motion, normal pulses. NEURO EXAM: Normal sensorium, cranial nerves II-XII grossly intact, normal speech, no gross weakness of arms, no gross weakness of legs. No ataxia of extremities, nml sensory exam. Medical Decision & Procedures ER Provider Diagnostic Interpretation: Radiology results have been interpreted by the radiologist and reviewed by me. CHEST ONE VIEW PORTABLE CLINICAL HISTORY: cardiac assessment chest pain COMPARISON STUDY: 07/19/2015 FINDINGS: The bones soft tissues and hemidiaphragms are normal. The cardiomediastinal silhouette is normal. The lungs are clear. The pulmonary vasculature is normal. IMPRESSION: Negative chest. The above report was generated using voice recognition software. It may contain grammatical, syntax or spelling errors. Electronically signed by: Jorge L Morrison M.D. 12/31/2017 9:29 PM Dictated Date/Time: 12/31/2017 9:28 PM HEAD WITHOUT CONTRAST (CT) CT DOSE: 720.95 mGycm HISTORY: Pain headache TECHNIQUE: Multiaxial CT images of the head were performed without the use of intravenous contrast. A dose lowering technique was utilized adhering to the principles of ALARA. Comparison: None. Findings: The paranasal sinuses and mastoid air cells are clear. The calvarium and skull base are intact. The ventricles and sulci are within normal limits. There is no mass, hematoma, midline shift, or acute infarct. Impression: No acute intracranial abnormality. The above report was generated using voice recognition software. It may contain grammatical, syntax or spelling errors. Electronically signed by: Jorge L Morrison M.D. 12/31/2017 9:47 PM Dictated Date/Time: 12/31/2017 9:[address] abdomen and pelvis with contrast: Comparison 07/19/15. Small lung nodules. Trace pericardial effusion. Small hiatal hernia. Bowel obstruction, evidence for diverticulitis/colitis or other acute process. Small low density left renal lesion likely cysts, hysterectomy and other nonemergent/incidental findings. Radiologist: Taurus Mosqueda M.D. Laboratory Results 12/31/17 20:35 12/31/17 20:35 Test 12/31/17 20:35 01/01/18 01:17 Red Blood Count 4.88 M/uL (4.2-5.4) Mean Corpuscular Volume 88.1 fL (80-100) Mean Corpuscular Hemoglobin 28.7 pg (25-34) Mean Corpuscular Hemoglobin Concent 32.6 g/dl (32-36) RDW Standard Deviation 44.6 fL (36.4-46.3) RDW Coefficient of Variation 13.8 % (11.5-14.5) Mean Platelet Volume 11.1 fL (7.4-10.4) Prothrombin Time 9.8 SECONDS (9.0-12.0) Prothromb Time International Ratio 0.9 (0.9-1.1) Activated Partial Thromboplast Time 25.9 SECONDS (21.0-31.0) Partial Thromboplastin Ratio 1.0 D-Dimer < 190 ug/L FEU (0-500) Anion Gap 9.0 mmol/L (3-11) Estimated GFR () 79.4 Estimated GFR (Non- 68.5 BUN/Creatinine Ratio 14.2 (10-20) Calcium Level 9.2 mg/dl (8.5-10.1) Total Bilirubin 0.4 mg/dl (0.2-1) Aspartate Amino Transf (AST/SGOT) 13 U/L (15-37) Alanine Aminotransferase (ALT/SGPT) 23 U/L (12-78) Alkaline Phosphatase 97 U/L (45-117) Total Creatine Kinase 86 U/L (26-192) Creatine Kinase MB 0.8 ng/ml (0.5-3.6) Creatine Kinase MB Ratio 0.9 (0-3.0) Total Protein 7.7 gm/dl (6.4-8.2) Albumin 4.0 gm/dl (3.4-5.0) Globulin 3.7 gm/dl (2.5-4.0) Albumin/Globulin Ratio 1.1 (0.9-2) Lipase 218 U/L (73-393) Troponin I < 0.015 ng/ml (0-0.045) Laboratory results per my review. Medications Administered Medications (Trade) Dose Ordered Sig/Jef Route Start Time Stop Time Status Last Admin Dose Admin Ondansetron HCl (Zofran Inj) 4 mg NOW STAT IV 12/31/17 21:08 12/31/17 21:09 DC 12/31/17 21:08 4 MG Famotidine (Pepcid 20mg Iv Push) 20 mg ONE STAT IV 12/31/17 22:13 12/31/17 22:15 DC 12/31/17 22:31 20 MG Ondansetron HCl (Zofran Inj) 4 mg NOW STAT IV 12/31/17 22:33 12/31/17 22:35 DC 12/31/17 22:41 4 MG Ketorolac Tromethamine (Toradol Inj) 15 mg NOW STAT IV 12/31/17 22:33 12/31/17 22:35 DC 12/31/17 22:41 15 MG ECG Indication: chest pain Rate (beats per minute): 63 Rhythm: sinus rhythm Findings: no acute ischemic change, no ectopy, other (Normal axis. Normal intervals. Moderate amount of artifact. ) Change: no significant change (when compared to 07/19/2015) Change: EKG: Patient's electrocardiogram per my interpretation. ED Course 2049: The patient was evaluated in room C6. A complete history and physical exam was performed. 2107: Ordered Zofran 4 mg IV 0: I reassessed the patient at this time. She is feeling better, though is still in pain. 2215: I reassessed the patient at this time. Her nausea had improved, though it recurred. She is still having pain. 2212: Ordered Famotidine 20 mg IV 2315: I spoke with SEVERIANO Phipps. He states the patient is having abdominal pain with left shoulder pain. She reports smelling something "weird." 3: Ordered Toradol 15 mg IV and Zofran 4 mg IV 0100: Patient states feeling much better at this time. Patient would like to try and go home. Discussed repeat troponin as a precaution and reevaluation of symptoms. Medical Decision Differential diagnoses includes but is not limited to acute coronary syndrome, myocardial infarction, pericarditis, pulmonary embolus, aortic dissection, pneumonia, pneumothorax, musculoskeletal, shingles, esophageal. HEART score: 2 Patient with multiple complaints which were difficult to assess withdrawal happening at different times over most of which had improved by the time of my evaluation here. Persistent symptoms resolved with minimal intervention here. Labs and imaging reassuring on the patient area did vital signs stable. Patient monitored as precaution for several hours and repeat troponin negative. Discussed with patient close follow-up with family doctor and possible need for cardiology evaluation and repeat cardiology testing. Discussed follow-up with family doctor regarding atypical headache/neck pain. Symptoms not consistent with CVA, cerebellar infarct/bleed/mass, carotid or vertebral dissection, intracranial hemorrhage, central venous sinus thrombus, doubt intracranial infection. I do not suspect that neck pain/headache is related to possible cardiac etiology. Given negative labs and imaging here after persistence of symptoms, I feel more catastrophic etiology less likely. Doubt aneurysm or aortic dissection. Doubt tamponade, effusion, GI bleed, no evidence of dysrhythmia on telemetry, pneumothorax. Lengthy bedside discussion with patient and who will come for with patient going home. Offered additional observation and patient declined stating that she would like to go home and follow-up as an outpatient. Discussed risk factors for ACS and stroke. I feel patient is low risk for both at this time. Doubt occult infectious etiology. Patient well-appearing at time of discharge, anxious to go home, and agreeable with plan for close follow-up. Medication Reconcilliation Current Medication List: was personally reviewed by me Blood Pressure Screening Patient's blood pressure: Elevated blood pressure Blood pressure disposition: Elevated BP felt to be situational Impression Primary Impression: Left sided chest pain Additional Impressions: Neck pain Headache Nausea Scribe Attestation The scribe's documentation has been prepared under my direction and personally reviewed by me in its entirety. I confirm that the note above accurately reflects all work, treatment, procedures, and medical decision making performed by me. Departure Information Dispostion Home / Self-Care Referrals Kiko Berger M.D. (PCP) Patient Instructions My [facility] Additional Instructions Please follow up with your family doctor. Please take your regular medications as prescribed. Please discuss with your family doctor possible need for repeat cardiology evaluation, and if persistent headaches or neck pain, possible need for neurology evaluation. If you develop recurrent or worsening chest pain or left arm discomfort, persistent nausea, recurrent or worsening headaches, vision changes, dizziness, neck pain, worsening numbness or tingling, fevers, passing out, you've any other new concerns, please return the emergency room. Problem Qualifiers Additional Impressions: Headache Headache type: unspecified Headache chronicity pattern: episodic headache Intractability: not intractable Qualified Codes: R51 - Headache
[2017-12-31 21:22] LABS: MEAN CELL VOLUME 88.1 fL (80-100); MEAN CORPUSCULAR HEMOGLOBIN 28.7 pg (25-34); MEAN CORPUSCULAR HGB CONC 32.6 g/dl (32-36); MEAN PLATELET VOLUME 11.1 fL (7.4-10.4); PLATELET COUNT 332 K/uL (130-400); RED CELL DISTRIBUTION WIDTH CV 13.8 % (11.5-14.5); RED CELL DISTRIBUTION WIDTH SD 44.6 fL (36.4-46.3); WHITE BLOOD COUNT 8.79 K/uL (4.8-10.8)
[2017-12-31 21:30] LABS: INR 0.9 (0.9-1.1); PTT PATIENT 25.9 SECONDS (21.0-31.0)
--- NOTE | 2017-12-31 21:30 | DIAGNOSTIC IMAGING REPORT ---
CHEST ONE VIEW PORTABLE CLINICAL HISTORY: cardiac assessment chest pain COMPARISON STUDY: 07/19/2015 FINDINGS: The bones soft tissues and hemidiaphragms are normal. The cardiomediastinal silhouette is normal. The lungs are clear. The pulmonary vasculature is normal. IMPRESSION: Negative chest. The above report was generated using voice recognition software. It may contain grammatical, syntax or spelling errors. Electronically signed by: Jorge L Morrison M.D. 12/31/2017 9:29 PM Dictated Date/Time: 12/31/2017 9:28 PM
[2017-12-31 21:32] LABS: ALT/SGPT 23 U/L (12-78); BLOOD UREA NITROGEN 13 mg/dl (7-18); CALCIUM 9.2 mg/dl (8.5-10.1); CARBON DIOXIDE 26 mmol/L (21-32); CREATININE 0.89 mg/dl (0.60-1.20); GLUCOSE 87 mg/dl (70-99); POTASSIUM 3.7 mmol/L (3.5-5.1); SODIUM 140 mmol/L (136-145)
[2017-12-31 21:37] LABS: ALKALINE PHOSPHATASE 97 U/L (45-117); AST/SGOT 13 U/L (15-37); CKMB 0.8 ng/ml (0.5-3.6); TOTAL PROTEIN 7.7 gm/dl (6.4-8.2)
[2017-12-31] MEDS ORDERED: OXYC-609 PO (21:38)
--- NOTE | 2017-12-31 21:48 | DIAGNOSTIC IMAGING REPORT ---
HEAD WITHOUT CONTRAST (CT) CT DOSE: 720.95 mGycm HISTORY: Pain headache TECHNIQUE: Multiaxial CT images of the head were performed without the use of intravenous contrast. A dose lowering technique was utilized adhering to the principles of ALARA. Comparison: None. Findings: The paranasal sinuses and mastoid air cells are clear. The calvarium and skull base are intact. The ventricles and sulci are within normal limits. There is no mass, hematoma, midline shift, or acute infarct. Impression: No acute intracranial abnormality. The above report was generated using voice recognition software. It may contain grammatical, syntax or spelling errors. Electronically signed by: Jorge L Morrison M.D. 12/31/2017 9:47 PM Dictated Date/Time: 12/31/2017 9:46 PM
[2017-12-31] MEDS ORDERED: FAMOTIDINE 20MG/5ML IV PUSH IV STA (22:13)
[2017-12-31] MEDS ORDERED: KETOROLAC TROMETHAMINE 30 MG/ML VIAL IV STA (22:33)
[2017-12-31] MEDS ORDERED: OPTIRAY 320 IV PRN (23:30)
[2018-01-01 00:03] VITALS: TEMP 36.6
[2018-01-01 01:21] LABS: LIPASE 218 U/L (73-393)
[2018-01-01 02:25] VITALS: BP 137/84; PULSE 71; O2SAT 98
--- NOTE | 2018-01-01 07:09 | DIAGNOSTIC IMAGING REPORT ---
ABDOMEN AND PELVIS CT WITH IV CONTRAST CT DOSE: 1346.84 mGy.cm HISTORY: Generalized abdominal pain. Nausea. TECHNIQUE: Multiaxial CT images of the abdomen and pelvis were performed following the use of intravenous contrast. A dose lowering technique was utilized adhering to the principles of ALARA. COMPARISON STUDY: Abdomen and pelvis CT 07/19/2015. FINDINGS: Punctate calcification along was within the lung bases. The unenhanced liver, spleen, gallbladder, pancreas, adrenal glands, and right kidney are unremarkable. There is a 6 mm hypodense lesion within the upper pole the left kidney, unchanged. This likely represents a cyst. No retroperitoneal lymphadenopathy. Hysterectomy. Normal bladder. No bowel wall thickening or obstruction. The appendix is not identified and is likely surgically absent. Trace pericardial fluid. IMPRESSION: 1. No bowel wall thickening or obstruction. 2. Postoperative changes as described above. Electronically signed by: Colin Wade M.D. 01/01/2018 7:07 AM Dictated Date/Time: 01/01/2018 7:04 AM
== END 2018-01-01 02:25 | disposition home or self-care (01) ==
LOC: C.EDB 19:29 → C.EDC 01-01 02:25
DX: R07.9 Chest pain, unspecified (principal); M54.2 Cervicalgia; R51 Headache; R11.0 Nausea; M51.36 Other intervertebral disc degeneration, lumbar region; I10 Essential (primary) hypertension; M06.9 Rheumatoid arthritis, unspecified; Z82.49 Family history of ischemic heart disease and other diseases of the circulatory system; Z88.8 Allergy status to other drugs, medicaments and biological substances